=== PATIENT | male | born 1980 | race African-American/Black ===

== ENCOUNTER 2025-05-12 15:09 | Outpatient (AMB) | payer BC, SELFPAY ==
--- NOTE | 2025-05-12 15:12 | A.OFFPC_ITS ---
Vital Signs 05/12/25 15:19 Height 5 ft 11.89 in Weight 162 lb 5 oz BMI 22.1 BP 130/79 Blood Pressure Location Rt brachial Position Sitting Pulse 96 Pulse Source Pulse Oximeter Temp 99.3 F Temp Source Oral Pulse Oximetry (%) 96 Oxygen Delivery Method Room Air Intake Visit Reasons: [employer]-Severe Back Pain Intake Note: Started with sciatic pain 1 yr ago. Has been intermittent since he started seeing a chiropro 1 month ago. Wants to quit smoking Accompanied by: Self / Same As Patient Allergies No Known Allergies Allergy (Verified 05/12/25 15:21) Tobacco use date assessed: 05/12/25 Dental Screening Dental Screen Date: 05/12/25 Did you have a dental visit in the last 12 months?: No HPI HPI Comments History of Present Illness Details History of Present Illness The patient is a 44 year old male [facility] and for a general checkup. Tobacco use disorder: He reports a 20-year history of smoking cigarettes, currently consuming about half a pack per day. Suspected sleep apnea: He reports that his child's mother has observed him stopping breathing during sleep, but he then resumes breathing on his own. His morning energy levels are variable, and he denies waking with headaches. He also denies excessive daytime somnolence. History of left shoulder dislocation: At age 19, the patient dislocated his left shoulder while playing basketball, which spontaneously reduced when he fell to the ground. He has never had it formally evaluated but notes that it now pops, feels tight, and has affected his posture over the years. He is currently seeing a chiropractor who has mentioned arthritis in the joint. History of Sciatica: Almost a year ago, he experienced a sudden sciatic event with an electric-like sensation in his right leg after turning to grab his phone. History of sports asthma: He had sports-induced asthma around age 10 or 11 but has since worked on it and is no longer bothered by it. Surgical History: - Denies any prior surgeries. Medications: - Denies taking any medications. Social History: - Occupation: He is employed as a [employer] ist. - Tobacco use: He has smoked about half a pack of cigarettes daily for 20 years. - Illicit drug use: Denies. Family History: - Denies any immediate family history of cancer. Past Medical History - Sports-induced asthma at approximately age 10 or 11. - Nasal fracture as a youth, requiring a n overnight hospital stay due to grogginess. - Left shoulder dislocation at age 19. - Sciatic event approximately one year a go. Health Maintenance - The patient is 44 and does not have an y risk factors requiring colonoscopy, which is recommended to start at age 47. - A low-dose CT scan for lung cancer scr eening will be recommended at age 52 due to his smoking history. - Labs have [facility]. [facility] Medical History (Updated 05/12/25 @ 19:48 by Merritt Castro MD) Screening for lung cancer Mild intermittent asthma Nicotine use Sleep apnea Family History (Updated 05/12/25 @ 15:14 by Keeley Valera CMA) Mother No problems noted. Father No problems noted. Social History Housing: Apartment Patient Tobacco Use Status: Current everyday Tobacco user e-Cigarette/Vaping Use: Currently Using service: No Current occupational status: employed Cognitive needs: No Hearing needs: No Vision needs: No Questionnaire PHQ-9 Over the last 2 weeks, how often have you been bothered by any of the following problems? 1. Little interest or pleasure in doing things: several days 2. Feeling down, depressed, or hopeless: several days 3. Trouble falling or staying asleep, or sleeping too much: several days 4. Feeling tired or having little energy: several days 5. Poor appetite or overeating: several days 6. Feeling bad about yourself - or that you are a failure or have let yourself or your family down: several days 7. Trouble concentrating on things, such as reading the newspaper or watching television: several days 8. Moving or speaking so slowly that other people could have noticed. Or the opposite - being so fidgety or restless that you have been moving around a lot more than usual: not at all 9. Thoughts that you would be better off or of hurting yourself in some way: not at all Total score: 7 Depression Screening Interpretation: Negative Depression Screening Done: Yes Source: Developed by Drs. Brady Ramos, Camryn Broderick, Regulo Suarez and colleagues, with an educational josefina from [employer]. Thrive Questionnaire Date Thrive assessed: 05/12/25 I am a: Patient What is your living situation today?: I have a steady place to live Within the past 12 months, did the food you bought not last and you didn't have the money to get more?: Never true Within the past 12 months, did you worry whether your food would run out before you got money to buy more?: Never true Do you have trouble paying for medicines?: No Do you have trouble getting transportation to medical appointments?: No Do you have trouble paying your heating and electricity bill?: Yes Do you have trouble taking care of your child, family member or friend?: No Are you currently unemployed and looking for a job?: No Are you interested in more education?: No Please select the resources that you would like help with: Utilities Currently or been in a relationship where the following occur: No concerns reported THRIVE Score: 1 AUDIT C Alcohol Use Questionnaire (AUDIT-C) 1. How often do you have a drink containing alcohol?: 4 or more times a week 2. How many drinks containing alcohol do you have on a typical day when you are drinking?: 1 or 2 3. How often do you have six or more drinks on one occasion?: Less than monthly Total Score: 5 KADEEM-7 AMB Questionnaire KADEEM-7 Date KADEEM - 7 assessed: 05/12/25 Feeling nervous, anxious, or on edge: 0 = Not at all Not being able to stop or control worryin = Several days Worrying too much about different things: 0 = Not at all Trouble relaxin = Several days Being so restless that it is hard to sit still: 0 = Not at all Becoming easily annoyed or irritable: 1 = Several days Feeling afraid as if something awful might happen: 0 = Not at all Total KADEEM-7 score (0-4 normal; 5-9 mild; 10-14 moderate; 15-21 severe): 3 Source: Developed by Drs. Brady Ramos, Camryn Broderikc, Regulo Suarez and colleagues, with an educational josefina from [employer]. Review of Systems Narrative Review of Systems - Respiratory: Reports a history of sports asthma as a child. Reports partner h as witnessed apneic episodes during sleep. - Musculoskeletal: Reports history of left shoulder dislocation. Reports the shoulder pops, is tight, and has affected his posture. Reports a history of a sc iatic event affecting the right leg. - Constitutional: Reports feeling tired on a hit or miss basis upon waking. Denies feeling tired during the day to the point of falling asleep if he sits down. - Neurological: Denies headaches. - Gastrointestinal: Denies problems with bowel movements. - Cardiovascular/Extremities: Reports occasional swelling in his legs, which he attributes to standing on his feet. 10-point ROS reviewed and negative except as noted in HPI Physical exam (Primary Care) Vital Signs: Last Vital Signs Temp 99.3 F 05/12/25 15:19 Pulse 96 05/12/25 15:19 BP 130/79 05/12/25 15:19 Pulse Ox 96 05/12/25 15:19 Oxygen Delivery Method Room Air 05/12/25 15:19 BMI result Body Mass Index 22.1 Tobacco/Smoking Status: Tobacco use Status Tobacco use date assessed 05/12/25 12 15:19 Patient Tobacco Use Status Current everyday Tobacco 05/12/25 15:22 e-Cigarette/Vaping Use Currently Using 05/12/25 15:22 PHQ-9: PHQ-9 Score PHQ-9: Total score 7 05/12/25 16:01 Depression Screening Interpretation: Negative Thrive Assessment: Date of Thrive Assessment Date Thrive assessed 05/12/25 05/12/25 15:19 Currently or been in a relationship where the following occur: No concerns reported Narrative Physical Exam General: Well-appearing, in no acute distress. Vital signs: Within normal limits. HEENT: Normocephalic, atraumatic. PERRLA, EOMI. Conjunctiva clear, sclera anicteric. Oropharynx clear, mucous membranes moist. TMs intact bilaterally. Neck: Supple, no lymphadenopathy, no thyromegaly, no JVD or carotid bruits. Cardiovascular: RRR, normal S1/S2, no murmurs, rubs, or gallops. Peripheral p ulses 2+ and symmetric. Occasional swelling in legs, likely due to prolonged standing. No edema. Respiratory: Lungs clear to auscultation bilaterally, no wheezes, rales, or rhonchi. Normal effort. Abdomen: Soft, non-tender, non-distended. Normoactive bowel sounds. No hepatosplenomegaly, no masses. MSK: Full range of motion, no joint swelling or deformity. Normal gait. History of left shoulder dislocation with residual tightness and arthritis. Right leg affected by previous sciatic event. Skin: Warm, dry, intact. No rashes, lesions, or pallor. Neuro: Alert and oriented x3. Cranial nerves II-XII intact. Strength 5/5 throughout. Sensation intact. Reflexes 2+ symmetric. Normal coordination and gait. Psych: Appropriate mood and affect. Normal judgment and insight. Office Procedures Flu Questionnaire Does the patient have a severe egg allergy?: No Does the patient have severe life threatening allergies?: No Does the patient have a fever or illness today?: No Has the patient ever had Guillain-[place] Syndrome?: No Has the patient ever had any past reaction to a flu shot?: No Immunizations Fluarix [id number] (PF) 45 mcg (15 mcg x 3)/0.5 mL IM syringe Performing Provider: Merritt Castro MD Performing Location: [facility] Documented (not given) by: Keeley Valera CMA on 05/12/25 15:25 Reason Not Given: Patient Refused Coding Level of Care Code New Pt Level 4 (28244) Add On Problem Visit Only Diagnoses Sleep apnea G47.30 Nicotine use Z72.0 Mild intermittent asthma J45.20 Assessment & Plan Assessment & Plan (1) Sleep apnea: Code(s): G47.30 - Sleep apnea, unspecified Category: Medical (2) Nicotine use: Code(s): Z72.0 - Tobacco use Category: Medical (3) Mild intermittent asthma: Code(s): J45.20 - Mild intermittent asthma, uncomplicated Category: Medical Plan Consent The patient verbally consented to comprehensive lab testing, including chlamydia and gonorrhea screening. He also agreed to an at-home sleep study to investigate possible sleep apnea. Patient was informed and verbally consented to the use of an ambient scribe for clinic note documentation during this visit. Plan 1. Wellness Visit And Establishing Care - A comprehensive panel of labs was ordered, including a complete blood count, comprehensive metabolic panel, hemoglobin A1c, lipid panel, hepatitis B, hepatitis C, HIV, magnesium, syphilis, thyroid studies, urinalysis, B12, folate, vitamin D, chlamydia, and gonorrhea. - The patient was advised he can get the labs done tomorrow from 9:00 AM to 4:00 PM and does not need to fast. - A follow-up visit is scheduled in two weeks to review the lab results. 2. Suspected Sleep Apnea - An order for an at-home sleep study was placed to evaluate for sleep apnea. - The patient was informed that the sleep study company will call him to arrange for pickup of the home kit. - Further management will be based on the results of the study. Discussion Notes I discussed with the patient that this visit is for him to establish primary care. I explained that at age 44, he does not yet require routine colon cancer screening, which begins at 45, as he has no risk factors. I also advised him that due to his smoking history, he will be eligible for a low-dose CT scan for lung cancer screening at age 52. We reviewed the plan to order a comprehensive set of blood tests to get a baseline of his health, and he consented to add chlamydia and gonorrhea testing. Based on his partner's report of him stopping breathing in his sleep, I recommended an at-home sleep study, and he agreed. I told him the sleep study company would contact him to arrange equipment pickup. Finally, I instructed him to have his blood work done before our follow-up appointment in two weeks, where we will go over all the results. Patient Instructions - Go to the lab to have your blood drawn. You can go any time between 9:00 AM and 4:00 PM. You do not need to fast (not eat or drink) before the test. - A company will call you to arrange for you to tile picker an at-home sleep study kit. Follow their instructions to use the kit at home. - Schedule a follow-up appointment in about two weeks to go over the results of your labs and the sleep study. - Make sure you get your labs done before your next appointment. - a low dose ct scan to screen for lung cancer with a pulmonary referral has been placed Medical Decision Making The patient is a 44-year-old male presenting to establish primary care and for a general wellness evaluation. His history is significant for 20 years of tobacco use, a past shoulder dislocation with residual symptoms, and a history of a sciatic episode. The most pressing new concern is the report from his partner of witnessed apneic episodes during sleep, raising suspicion for obstructive sleep apnea. An at-home sleep study is the appropriate next diagnostic step to confirm or rule out this diagnosis. Given this is an initial visit, comprehensive baseline lab work is warranted to assess for cardiometabolic risks and screen for common infectious diseases, particularly given his age and social history. The plan is to gather this objective data and follow up in two weeks to review the findings and formulate a more comprehensive, long-term health maintenance plan. Total Time Statement 30 min Total time spent caring for the patient today includes pre-visit chart review, documentation, review of laboratory and diagnostic imaging results, medication reconciliation, medically necessary evaluation, counseling on diagnoses, care coordination, ordering appropriate tests and medications, review of tests performed by other providers, reporting test results to the patient, and communication with other healthcare providers. Orders: Orders Influenza [id number] Immunization Today Z23 - Encounter for immunization Syphilis Screen Today Z13.9 - Encounter for screening, unspecified Hepatitis C Antibody Today Z13.9 - Encounter for screening, unspecified HIV Ab/Ag Today Z13.9 - Encounter for screening, unspecified Hemoglobin A1c Today Z13.9 - Encounter for screening, unspecified Magnesium Today Z13.9 - Encounter for screening, unspecified Hepatitis B Surface Antibody Today Z13.9 - Encounter for screening, unspecified Vitamin D 25-OH (D2 and D3) Today Z13.9 - Encounter for screening, unspecified RT home sleep study Today G47.30 - Sleep apnea, unspecified CT NG by PCR Urine Today Z13.9 - Encounter for screening, unspecified Complete Blood Count Auto Diff Today Z13.9 - Encounter for screening, unspecified Hepatitis B Surface Antigen Today Z13.9 - Encounter for screening, unspecified Comprehensive Met. Panel Today Z13.9 - Encounter for screening, unspecified TSH reflex Free T4 Today Z13.9 - Encounter for screening, unspecified UA CC w/rflx Micro + Cult Today Z13.9 - Encounter for screening, unspecified Lipid Panel Today Z13.9 - Encounter for screening, unspecified Vitamin B12 and Folate Today Z13.9 - Encounter for screening, unspecified Referrals Pulmonology Referral Z12.2 - Encounter for screening for malignant neoplasm of respiratory organs
[2025-05-12 15:19] VITALS: BP 130/79; PULSE 96; TEMP 37.4; O2SAT 96; BMI 22.1
--- OUTSIDE RECORDS SUMMARY | 2025-05-12 21:44 | XMS_ITS | Clinical Summary ---
Author Organization [facility] it Address [address] [place] [address] Care Team Providers Care Quarryman Name Role Phone Unavailable Primary Care Provider Unavailabl e Social History Tobacco Use Types Packs/Day Years Used Date Smoking Tobacco: Never Assessed Sex and Gender Information Value Date Recorded Sex Assigned at Not on file Legal Sex Male 12:08 PM EST Gender Identity Not on file Sexual Orientation Not on file Plan of Treatment Health Maintenance Due Date Last Done Comments DTaP,Tdap,and Td Vaccines (1 - Tdap) 2001 Hepatitis B Vaccines (1 of 3 - 19+ 3-dose series) 2001 HPV Vaccines (1 - 3-dose SCD M series) 2009 Depression Screening 05/29/2024 COVID-19 Vaccine (1 - 2024-2 6 season) 2025 Influenza Vaccine (#1) 2025 RSV Immunization Adult Patie nts (1 - 1-dose 75+ series) 2057 HIB Vaccines Aged Out No longer eligi ble based on patient's age to complete this topic Hepatitis A Vaccines Aged Out No long er eligible based on patient's age to complete this topic IPV Vaccines Aged Out No longer eligi ble based on patient's age to complete this topic MMR Vaccines Aged Out No longer eligi ble based on patient's age to complete this topic Meningococcal ACWY Vaccine Aged Out N o longer eligible based on patient's age to complete this topic Meningococcal B Vaccine Aged Out No l onger eligible based on patient's age to complete this topic Pneumococcal Vaccine: Pediat rics (0 to 5 Years) and At-Risk Patients (6 to 49 Years) Aged Out No longer eligible b ased on patient's age to complete this topic RSV Immunization Patients Un anthony 20 months Aged Out No longer eligible b ased on patient's age to complete this topic Varicella Vaccines Aged Out No longer eligible based on patient's age to complete this topic
== END 2025-05-12 16:09 | disposition home or self-care (01) ==
LOC: HO.HMCFMS 15:09
PROVIDERS: Visit Provider Student in an Organized Health Care Education/Training Program
DX: G47.30 Sleep apnea, unspecified (principal); Z72.0 Tobacco use; J45.20 Mild intermittent asthma, uncomplicated; Z23 Encounter for immunization

== ENCOUNTER → 2025-05-12 15:09 | Outpatient (BNVA) | payer BC, SELFPAY | PROVIDERS: Visit Provider Student in an Organized Health Care Education/Training Program | DX: G47.30 Sleep apnea, unspecified (principal); J45.20 Mild intermittent asthma, uncomplicated; F17.200 Nicotine dependence, unspecified, uncomplicated; Z71.6 Tobacco abuse counseling | CPT/HCPCS: 90471 ==

== ENCOUNTER 2025-05-14 14:40 | Outpatient (REF) | payer BC, SELFPAY ==
[2025-05-14 19:03] LABS: MANUAL DIFF FLAG NO
[2025-05-14 19:07] LABS: Appearance Urine Clear; Glucose Urine UA Negative (Negative); PH 8.0 (5.0-9.0); Specific Gravity - Urine >= 1.030 (1.005-1.025); UMIC TRIGGER UACC YES
[2025-05-14 19:11] LABS: UACC Culture Trigger YES
[2025-05-14 19:32] LABS: Hematocrit 41.8 % (42.0-52.0); Hemoglobin 14.0 g/dl (14.0-18.0); Imm Gran Abs Auto 0.01 X10*3/uL (0.00-0.03); Imm Gran Pct Auto 0.2 % (0.0-0.4); Lymphocytes Absolute Auto 0.9 X10*3/uL (1.2-4.9); Mean Corpuscular HGB Conc 33.5 g/dl (31.0-36.0); Mean Corpuscular Hemoglobin 30.3 pg (27.0-33.0); Mean Corpuscular Volume 90.5 fL (80.0-98.0); NRBC Abs Auto 0.000 X10*3/uL (0.0-0.012); NRBC Pct Auto 0.0 /100WBC (0.0-0.2); Platelet Count 238 X10*3/uL (160-400); Red Blood Count 4.62 X10*6/uL (4.60-5.80); White Blood Count 4.6 X10*3/uL (4.8-10.8)
--- OUTSIDE RECORDS SUMMARY | 2025-05-14 19:38 | XMS_ITS | Clinical Summary ---
Author Organization [facility] it Address [address] [place] [address] Care Team Providers Care Annealer Name Role Phone Unavailable Primary Care Provider [...]
[2025-05-14 19:39] LABS: Alanine Aminotransferase 58 U/L (0-40); Albumin Level 4.5 g/dL (3.5-5.0); Alkaline Phosphatase 89 U/L (39-117); Anion Gap 14 (12-20); Aspartate Amino Transferase 211 U/L (5-37); Blood Urea Nitrogen 9 mg/dL (9-16); Calcium 9.2 mg/dL (8.4-10.2); Carbon Dioxide 30 mmol/L (22-29); Chloride 99 mmol/L (96-108); Cholesterol 165 mg/dL (<200); Estimated Glomerular Filt Rate > 60; HDL Cholesterol 86 mg/dL (>40); Magnesium 1.8 mg/dL (1.6-2.6); Potassium 3.3 mmol/L (3.3-5.1); Sodium 140 mmol/L (135-145); Total Protein 7.9 g/dL (6.5-8.0); Triglycerides 83 mg/dL (<150)
[2025-05-14 20:04] LABS: Folate 4.0 ng/mL (> or = 4.0); Vitamin B12 393 pg/mL (200-900)
[2025-05-15 01:53] LABS: CT PCR Urine NOT DETECTED (Not Detect.); NG PCR Urine NOT DETECTED (Not Detect.)
[2025-05-15 04:25] LABS: HBS Num1 30.18 mIU/mL (0-7.99); HIV Num 1 0.07 S/CO (0.00-0.99); ~HepC Num1 0.12 S/CO (0.00-0.79); ~Hepatitis B Surface Antibody REACTIVE (Nonreactive); ~Hepatitis C Antibody Nonreactive (Nonreactive)
[2025-05-15 04:52] LABS: Syphilis Screen Nonreactive (Nonreactive)
[2025-05-15 13:17] LABS: HBsAGNum1 0.22 S/CO (0.00-0.99); Hepatitis B Surface Antigen Negative (Negative)
== END 2025-05-14 14:41 | disposition home or self-care (01) ==
LOC: HO.HKASLDS 14:40
PROVIDERS: PCP Student in an Organized Health Care Education/Training Program; Visit Provider Student in an Organized Health Care Education/Training Program
DX: Z20.2 Contact with and (suspected) exposure to infections with a predominantly sexual mode of transmission (principal); Z11.59 Encounter for screening for other viral diseases; Z13.29 Encounter for screening for other suspected endocrine disorder; Z13.1 Encounter for screening for diabetes mellitus; Z13.6 Encounter for screening for cardiovascular disorders; Z13.21 Encounter for screening for nutritional disorder
CPT/HCPCS: 80053; 80061; 81001; 81003; 82306; 82607; 82746; 83036; 83735; 84443; 85025; 86706; 86780; 86803; 87086; 87340; 87389; 87491; 87591